=== PATIENT | male | born 1980 | race Caucasian/White ===

== ENCOUNTER → 2018-06-16 | Outpatient (CLI) | payer BC | LOC: M LRY 11:42 | DX: R07.9 Chest pain, unspecified (principal) | CPT/HCPCS: 71046 ==

== ENCOUNTER → 2019-07-04 | Outpatient (CLI) | payer BC ==
--- NOTE | 2019-07-04 22:59 | REP ---
CHEST X-RAY, TWO VIEWS. History: Cough and fever. Comparison study: 06/16/2018 Findings: There is a subtle area of increased density overlying the heart on the lateral radiograph posterior to the lower sternum. This is not seen on the frontal radiograph, but an infiltrate in the right middle lobe or lingular segment of the left upper lobe medially could have this appearance. Lung jara are otherwise clear. Pleural angles are sharp. Cardiomediastinal silhouette is unremarkable. IMPRESSION: Possible infiltrate anteriorly overlying the heart on the lateral film consistent with subtle pneumonia. Otherwise, no acute disease. Electronically Signed by Obi Estrada MD 07/05/2019 08:09 A
== END ==
LOC: M LRY 16:00
PROVIDERS: ATTEND Physician Assistant
DX: R50.9 Fever, unspecified (principal)